=== PATIENT | male | born 1930 ===

== ENCOUNTER → 2016-09-29 | Outpatient (CLI) | payer OTHER | LOC: RAD 08:47 | DX: R06.02 Shortness of breath (principal); R06.00 Dyspnea, unspecified; R91.1 Solitary pulmonary nodule ==

== ENCOUNTER → 2016-12-08 | Outpatient (CLI) | payer OTHER | LOC: RAD 12:33 | DX: R06.00 Dyspnea, unspecified (principal) ==

== ENCOUNTER → 2017-11-29 | Outpatient (CLI) | payer OTHER | LOC: RAD 12:42 | DX: M54.16 Radiculopathy, lumbar region (principal); M48.061 Spinal stenosis, lumbar region without neurogenic claudication ==

== ENCOUNTER → 2017-12-07 | Outpatient (CLI) | payer OTHER | LOC: MRI 11:25 | DX: M51.16 Intervertebral disc disorders with radiculopathy, lumbar region (principal); M48.062 Spinal stenosis, lumbar region with neurogenic claudication; M12.88 Other specific arthropathies, not elsewhere classified, other specified site; M25.78 Osteophyte, vertebrae; M79.652 Pain in left thigh ==

== ENCOUNTER → 2017-12-19 | Outpatient (CLI) | payer OTHER ==
[~2017-12-19] VITALS: Ht 170.2 cm; Wt 72.6 kg
[~2017-12-19] MED LIST: ALLOPURINOL 10100 M1 PO; APAP650 PO; AVAPRO 150 MG150 M1 PO; GABAPENTIN 100100 MG PO; KAPSPARGO SPRIN25 MG PO; NEURONTIN 300300 M1 PO; PRAVACHOL40 MG PO; UNICOMPLEX M TA1 TA1 PO; VITAMIN D1000 UNI1 PO
--- NOTE | ~2017-12-19 | HPC ---
[facility] [address] [place] [address] PAIN MANAGEMENT CONSULTATION Name: BOONE DENNEY Room #: REG [facility]#: [id number] Admission: 12/19/17 Attend Phys: Jas Diaz DO Discharge: Date of : 29 Report #: [id number] THIS REPORT FOR: //name// CC: aJs Mcnamara MD DATE OF SERVICE: 12/19/2017 REFERRING PHYSICIAN: Paul Mcnamara MD CHIEF COMPLAINT: Low back pain, left lower extremity pain with paresthesias. HISTORY OF PRESENT ILLNESS: As you know, the patient is an 87-year-old male who reports acute onset of low back pain, left lower extremity pain that began in 11/11/2017. The patient denies specific injury or trauma that may have led to symptom development. He indicates pain has been present for greater than a month. He describes the pain as constant, aching and tender in sensation, exacerbated with bending, improves with medications and seated position. He is placing pain score no greater than 6/10 today. The patient was started on gabapentin for which he takes gabapentin 100 mg in the morning, 100 mg at noon and 100 mg at night along with an extra strength Tylenol with near 100% improvement in overall pain. The patient reports that is only pain at this time is noted early in the morning upon arising from bed, states that his medications do not provide 12-hour coverage during sleep. He has been referred to our service to discuss treatment options for suspected lumbar radiculopathy. The patient describes pain today is constant, aching and tender, places current pain score at around 6/10, daily average at less than 2/10, worst pain has been is 8/10. 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 Otherwise, he is "pain free throughout the day." He has been referred to our clinic. We discuss options for treatment for suspected lumbar radiculopathy. PAST MEDICAL HISTORY: 1. Hypertension. 2. Prostate cancer, status post laparoscopic prostatectomy. 3. Osteoarthritis. PAST SURGICAL HISTORY: 1. Laparoscopic prostatectomy. 2. Total right knee arthroplasty. SOCIAL HISTORY: The patient denies tobacco, alcohol, IV or illicit drug use. 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 He is not working, not receiving workmen's compensation nor is [place] trying [place] [address] PAIN MANAGEMENT CONSULTATION Name: BOONE DENNEYVANESSARama Room #: REG [facility] [id number] Admission: 12/19/17 Attend Phys: Jas Diaz DO Discharge: Date of : 29 Report #: [id number] He is unaccompanied today. REVIEW OF SYSTEMS: Positive for wearing corrective eyewear, frequent urination, nocturia, incontinence, dribbling of urine, low back pain, left lower extremity pain with paresthesias. All other review of systems negative per 12-point review of systems other than those listed in history of present illness. Pain impact score 5/70 indicating minimal fact on daily activity. IMAGING: MRI lumbar spine obtained on 12/07/2017 shows severe acquired spinal stenosis at L4-L5 secondary to central disk bulge, hypertrophic facet arthropathy, hypertrophy of the ligamentum flavum. Central canal is severely narrowed with minimal CSF signal, associated moderate left neural foraminal stenosis noted at the level. PQRS: The patient has known osteoarthritis of the bilateral knees, bilateral hips and low back. No rheumatoid arthritis. He places pain intensity today 6/10. He is not a fall risk, has not had a fall in the last 3 months. He is not on blood thinners, but he is treated for hypertension. He is not on opioids, has a low opioid addiction potential. His pain impact score 5/70. PHYSICAL EXAMINATION: VITAL SIGNS: Blood pressure 154/74, pulse 78, respiratory rate 16 and unlabored. The patient is 100% on room air. Height 5 feet 7 inches tall, weight 160 pounds, BMI calculated 25.1. GENERAL: Well-developed, well-nourished, well-hydrated 87-year-old male appearing his stated age. He is placing current pain score at 1/10. HEENT: Normocephalic, atraumatic. Pupils equal, round, reactive to light. Extraocular muscles are intact. Sclerae nonicteric without injection. NEUROLOGIC: Cranial nerves 2-12 grossly intact. Speech is fluent. The patient deemed a good historian. LUNGS: Clear, no wheeze, rhonchi or rales. CARDIOVASCULAR: Regular. No appreciable gallop, no rub. ABDOMEN: Soft, nontender, nondistended, normoactive bowel sounds. EXTREMITIES: Show no clubbing, no cyanosis, no edema. MUSCULOSKELETAL: Lower extremity strength appears equal and symmetrical 5/5, muscle bulk and tone is equal and symmetrical in comparing left lower extremity to right. Seated straight leg raising negative. Supine straight leg raising positive on the left. Karlene's test negative. Modified Gaenslen's positive for axial low back pain. Ankle clonus negative. Babinski is negative. Gait mildly antalgic favoring left lower extremity over right. Lumbar provocation testing is met with mild axial back pain, no radiation of symptoms noted. ASSESSMENT: 1. Lumbar radiculopathy. 2. Severe spinal stenosis of lumbar spine. 3. Displacement of lumbar intervertebral disk with radiculopathy. [facility] [address] [place] [address] PAIN MANAGEMENT CONSULTATION Name: BOONE DENNEYVANESSARama Room #: REG JAM Ebony#: [id number] Admission: 12/19/17 Attend Phys: Jas Diaz DO Discharge: Date of : 29 Report #: [id number] 4. Lumbosacral spondylosis with radiculopathy. 5. Neural foraminal stenosis of lumbar spine. 6. Lumbar degeneration. 7. Chronic intractable pain. PLAN: 1. Based on today's physical exam and the history patient has provided, the description the patient uses in regards to pain, exacerbating factors of his symptoms and the findings of his MRI and the likely source of the patient's pain is lumbar radiculopathy secondary to spinal stenosis. The patient's spinal stenosis is located at the L4-L5 level, which shows severe spinal stenosis secondary to disk bulging, hypertrophic facet arthropathy and hypertrophy of the ligamentum flavum, which are typical findings in an 87-year-old male. The patient and I did discuss the treatment options available for symptom palliation. The following was discussed with the patient today. We discussed physical therapy, stretching exercises, core strengthening as a treatment option. We discussed medication management, escalating his dose of neuropathic pain medication in the evening hours to address his morning pain issues. Otherwise, his pain is near nonexistent during the daytime hours with current dosing. We discussed epidural injection under fluoroscopic guidance to address back pain. We also discussed surgical options that may be ultimately necessary to decompress the L4-L5 level. After reviewing the risks and benefits of all the proposed treatment options, the patient chose to make adjustments in medication initially. If this is ineffective, move forward with an epidural injection. 2. The patient was advised to increase his gabapentin. Currently, he is at 100 mg in the morning with an extra strength Tylenol and 100 mg at noon with an extra strength Tylenol. Would recommend increasing his dose of gabapentin in the evening hours, but maintain the extra strength Tylenol dosing at night. This should provide the patient with better analgesic benefit to potentially allow him to make it through the evening hours and awake with less discomfort. We also discussed if increasing dose at night prior to bedtime is ineffective, he could then take a dose at bedtime and then take a second dose in the mid evening hours when he awakes to micturate secondary to his bladder incontinence. This would be another way to address his pain in the morning hours by increasing his gabapentin dose or increasing his dose regimen. The patient will choose the most effective way to treat his a.m. pain either will be in efficient way of handling it. 3. The patient was provided prescription of gabapentin 300 mg dose, this will be utilized at night either 300 mg at bedtime and again 300 mg in the mid evening hours to address his morning pain or the possibility of taking 600 mg at night. The patient was given 2 ways to dose. He will choose the one that works most effective. He was given gabapentin 300 mg #60 tablets with 2 refills, assuming efficacy. The patient will watch for any side effects, contact the clinic with any questions or concerns. [address] [address] PAIN MANAGEMENT CONSULTATION Name: BOONE DENNEY Room #: REG JAM Beck#: [id number] Admission: 12/19/17 Attend Phys: Jas Diaz DO Discharge: Date of : 29 Report #: [id number] 4. We will see the patient back in followup visit in approximately 2 weeks. At that time, the patient will have trialled dosing changes in the evening hours determine if this will control his evening pain and morning pain issues. We will discuss that at that time whether or not interventional treatments will be necessary. 5. We wish to thank Dr. Mcnamara for the opportunity to see this patient in consultation. We will keep you apprised of his response to treatment as we address lumbar radicular symptoms secondary to spinal stenosis. Again, we wish to thank Dr. Mcnamara for the opportunity to the patient in consultation. By: [id number] Jas Diaz DO /nt
[2017-12-19 13:14] VITALS: BP 154/74
== END ==
LOC: PAIN 06:18
DX: M47.27 Other spondylosis with radiculopathy, lumbosacral region (principal); M51.16 Intervertebral disc disorders with radiculopathy, lumbar region; M48.062 Spinal stenosis, lumbar region with neurogenic claudication; G89.4 Chronic pain syndrome; Z79.899 Other long term (current) drug therapy

== ENCOUNTER → 2018-01-09 | Outpatient (CLI) | payer OTHER ==
[~2018-01-09] VITALS: Ht 170.2 cm; Wt 72.6 kg
--- NOTE | ~2018-01-09 | HPC ---
[facility] [address] [place] [address] PAIN MANAGEMENT CONSULTATION Name: BOONE DENNEY Room #: REG [facility] Ebony#: [id number] Admission: 01/09/18 Attend Phys: Jas Diaz DO Discharge: Date of : 29 Report #: [id number] THIS REPORT FOR: //name// CC: Jas Mcnamara DATE OF SERVICE: 01/09/2018 CHIEF COMPLAINT: Low back pain, left lower extremity pain and paresthesias. HISTORY OF PRESENT ILLNESS: As you know, the patient is a very pleasant 87-year-old male who reports acute onset of low back pain, left lower extremity pain that began in 11/11/2017. Denied any specific injury or trauma that may have led to symptom development. He was seen in consultation per the request of Dr. Mcnamara on 12/19/2017. At that visit, diagnosed with lumbar radiculopathy secondary to severe spinal stenosis of the lumbar spine. His spinal stenosis is multifactorial due to facet changes in the lumbar region as well as displacement of a lumbar intervertebral disk. He also has fairly significant neural foraminal stenosis noted on this imaging study. He returns today in followup visit having been initiated on gabapentin therapy with good efficacy. The patient states he was only experiencing pain in the morning hours, lasting for about an hour; once he takes his gabapentin his pain resolves throughout the day. He returns today in followup visit stating pain score of no greater than 1/10 daily except for that morning hours where he has a pain of about 4-6/10. He returns for refill of medications. He is very pleased with response to the medication management. He indicates the pain when present is aching, tender, numbness and tingling; exacerbated with bending, walking and arising from bed; improves with medications, seated position and warm compress. ALLERGIES: No known drug allergies. CURRENT MEDICATIONS: Gabapentin, multivitamin, cholecalciferol, acetaminophen, metoprolol, allopurinol, irbesartan, pravastatin. SOCIAL HISTORY: The patient denies tobacco, alcohol, IV or illicit drug use. 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 He is unaccompanied today. IMAGING: No new imaging available. PQRS: The patient has known osteoarthritis, bilateral knees, bilateral hips and low back. No rheumatoid arthritis. He places current pain score at around 0-1/10. He is not a fall risk, has not had a fall in the last 3 months. He is not on blood thinners. He is treated for hypertension. He is not on opioids and has a low addiction potential. His pain impact score today is 5/70, indicating mild interference of daily activities secondary to pain. [facility] [address] [place] [address] PAIN MANAGEMENT CONSULTATION Name: BOONE DENNEY RAJAT Room #: REG CL Ebony#: [id number] Admission: 01/09/18 Attend Phys: Jas Diaz DO Discharge: Date of : 29 Report #: [id number] PHYSICAL EXAMINATION: VITAL SIGNS: Blood pressure 169/68, pulse 76, respiratory rate 16 and unlabored. The patient 93% on room air. Height 5 feet 7 inches tall, weight is 160 pounds, BMI calculated 25.1. GENERAL: Well-developed, well-nourished, well-hydrated 87-year-old male appearing his stated age, placing current pain score 1/10 throughout the day, 4-6/10 in the morning hours, lasting for just 1 hour. HEENT: Normocephalic, atraumatic. Pupils equal, round, reactive to light. Extraocular muscles are intact. EXTREMITIES: Show no clubbing, no cyanosis, no edema. MUSCULOSKELETAL: Lower extremity strength remains 5/5, intact to light touch from L1 through S2 dermatomes. Seated straight leg raising negative. Supine straight leg raising positive on the left. Karlene's test negative. Modified Gaenslen's remains positive for axial low back pain, no radiation of symptoms. ASSESSMENT: 1. Lumbar radiculopathy. 2. Severe spinal stenosis of lumbar spine. 3. Displacement of lumbar intervertebral disk with radiculopathy. 4. Lumbosacral spondylosis with radiculopathy. 5. Neural foraminal stenosis of the lumbar spine. 6. Facet arthropathy of the lumbar spine. 7. Degeneration of the lumbar spine. 8. Chronic intractable pain. PLAN: 1. The patient returns today in followup visit having noted good efficacy with the gabapentin therapy. In fact, once he takes his gabapentin in the morning hours, his pain is negligible throughout the day. He is able to return to all activities of daily living. The patient and I did discuss this one hour of time upon arising in the morning that is causing discomfort. We have offered the patient three different ways to treat this issue. The following was discussed with the patient. 2. The patient can remain on the current dosing and timing, he is receiving good efficacy. He reports the 4-6/10 pain only lasts for about an hour after awakening and taking his gabapentin. If this works for the patient and he is not having any difficulty, he can continue the current dosing. We discussed the possibility of taking his gabapentin earlier in the morning. He can do this upon arising to micturate. The patient can take the medication at about 5:30m his typical awakening time, then return to bed, waking up another hour or later, which would provide the medication coverage upon arising. He would then remain on his current night dosing at the current prescribed parameters. Certainly, he could increase his evening dose, which will provide better coverage throughout the evening hours and probably provide improvement for morning issues. He is going to consider his options. This increase would be monitored for any side [address] [address] PAIN MANAGEMENT CONSULTATION Name: MARTHA DENNEYCIRILO LAURENRama Room #: REG Spencer Beck#: [id number] Admission: 01/09/18 Attend Phys: Jas Diaz DO Discharge: Date of : 29 Report #: [id number] effects. After reviewing the different ways to take the medication to address his morning medication, the patient stated he will continue his current dosing at present, he may adjust his morning as recommended. He will contact us with efficacy. 3. The patient was provided a refill prescription of his gabapentin to take 300 mg 3 tabs in the morning and 3 tabs at night, #240 with 2 refills. 4. We will see the patient back in followup visit in 3 months for ongoing medication therapy. If this is working well. He can follow up with Dr. Mcnamara. If necessary, the patient can return to receive refills of medication or to discuss interventional treatments. By: [id number] Jas Diaz DO /nt
[2018-01-09 12:44] VITALS: BP 169/68
== END ==
LOC: PAIN 06:37
DX: M47.27 Other spondylosis with radiculopathy, lumbosacral region (principal); M48.062 Spinal stenosis, lumbar region with neurogenic claudication; M51.16 Intervertebral disc disorders with radiculopathy, lumbar region; G89.4 Chronic pain syndrome; M12.88 Other specific arthropathies, not elsewhere classified, other specified site; Z79.899 Other long term (current) drug therapy

== ENCOUNTER → 2018-03-27 | Outpatient (CLI) | payer OTHER ==
[~2018-03-27] VITALS: Ht 170.2 cm; Wt 77.1 kg
[~2018-03-27] MED LIST changes: +NEURONTIN600 MG PO; +SKELAXIN 800 M800 MG PO
[2018-03-27 11:12] VITALS: BP 158/74
--- NOTE | 2018-03-27 11:14 | NUR ---
Pain Clinic Assessment: 1. History of Osteoarthritis: History of Rheumatoid Arthritis: 2. Height: 5 ft. 7 in. 170.2 cm. Weight: 170.0 lb. oz. 77.112 kg. Patient's BMI: 26.6 3. Vital Signs: BP: 158/74 Pulse: 90 Resp: 16 Temp: 02 Sat: 98 ECG Mon: 4. Pain Intensity: 0 5. Fall Risk: Dizziness: N Needs help standing or walking: N Fallen in the last 3 months: N Fall risk comments: 6. Patient on Blood Thinner: None 7. History of Hypertension: Y 8. Opioid Therapy greater than 6 weeks: N Opiate Contract Signed: 9. Risk Assessment Tool Provided: LOW 10. Functional Assessment Tool: 11. Recreational Drug Use: Never Drug Type: Tobacco Use: Never Smoker Tobacco Type: Amount or Packs/day: How Many Years: Alcohol Use: No Frequency: Quant:
== END ==
LOC: PAIN 06:44
DX: M79.652 Pain in left thigh (principal); M25.572 Pain in left ankle and joints of left foot; M54.5 Low back pain; Z79.899 Other long term (current) drug therapy

== ENCOUNTER → 2018-08-21 | Outpatient (CLI) | payer OTHER ==
[~2018-08-21] VITALS: Ht 170.2 cm; Wt 76.4 kg
[2018-08-21 13:55] VITALS: BP 146/90
--- NOTE | 2018-08-21 14:13 | NUR ---
Pain Clinic Assessment: 1. History of Osteoarthritis: Not Applicable History of Rheumatoid Arthritis: Not Applicable 2. Height: 5 ft. 7 in. 170.2 cm. Weight: 168.4 lb. oz. 76.386 kg. Patient's BMI: 26.4 3. Vital Signs: BP: 146/90 Pulse: 74 Resp: 16 Temp: 02 Sat: 98 ECG Mon: 4. Pain Intensity: 0 5. Fall Risk: Dizziness: N Needs help standing or walking: N Fallen in the last 3 months: N Fall risk comments: 6. Patient on Blood Thinner: None 7. History of Hypertension: Y 8. Opioid Therapy greater than 6 weeks: N Opiate Contract Signed: 9. Risk Assessment Tool Provided: LOW 10. Functional Assessment Tool: 11. Recreational Drug Use: Never Drug Type: Tobacco Use: Never Smoker Tobacco Type: Amount or Packs/day: How Many Years: Alcohol Use: No Frequency: Quant:
--- NOTE | 2018-09-04 08:11 | HPC ---
[facility] [address] [place] [address] PAIN MANAGEMENT CONSULTATION Name: BOONE DENNEY Room #: REG Spencer JordyKaylaDixon#: [id number] Admission: 08/21/18 ������������������ Attend Phys: Jas Diaz DO Discharge: ������������������ Date of : 29 Report #: [id number] THIS REPORT FOR: //name// CC: Jas Mcnamara MD DATE OF SERVICE: 08/21/2018 REFERRING PHYSICIAN: Paul Mcnamara M.D. CHIEF COMPLAINT: Low back pain, left lower extremity pain with paresthesias. HISTORY OF PRESENT ILLNESS: As you know, the patient is a very pleasant 87-year-old male returning in followup visit with pain rated at 0/10. He is requesting assistance to come off his gabapentin therapy, which has provided quite a significant improvement in overall pain. He feels he has improved physiologically and wishes to come off the medication if at all possible. He has been slowly reducing his medication, but was advised by his PCP to return to confirm weaning parameters. Overall, the patient states he is doing really well. His pain impact score is 5/70, indicating mild near complete resolution of pain. ALLERGIES: No known drug allergies. CURRENT MEDICATIONS: Gabapentin, multivitamin, cholecalciferol, acetaminophen, metoprolol, allopurinol, irbesartan and pravastatin. SOCIAL HISTORY: The patient denies tobacco, alcohol, IV or illicit drug use. 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 IMAGING: No new imaging available. PQRS REVIEW: The patient has known arthritic change of the bilateral knees, bilateral hips and lumbar spine. No rheumatoid arthritis, placing pain score 0/10. He is not a fall risk, has not had fallen in the last 3 months. He is not on blood thinners. He is treated for hypertension. He is not on any chronic opioids. He does have a low opioid addiction potential. Pain impact score 5/70, indicating mild interference of daily activities secondary to pain. PHYSICAL EXAMINATION: VITAL SIGNS: Blood pressure 146/90, pulse is 74 and respiratory rate 16 and unlabored. The patient is 98% on room air. Height 5 feet 7 inches tall, weight 168.4 pounds, BMI calculated 26.4. GENERAL: Well-developed, well-nourished and well-hydrated 87-year-old male, appearing stated age, placing current pain score at 0/10. [address] [address] PAIN MANAGEMENT CONSULTATION Name: BOONE DENNEY Room #: REG CLI [facility]#: [id number] Admission: 08/21/18 ������������������ Attend Phys: Jas Diaz DO Discharge: ������������������ Date of : 29 Report #: [id number] HEENT: He is normocephalic, atraumatic. Pupils equal, round and reactive to light. Extraocular muscles are intact. EXTREMITIES: Show no clubbing, no cyanosis and no edema. MUSCULOSKELETAL: Lower extremity strength symmetrical, 5/5; intact to light touch from L1 through S2 dermatomes. Seated straight leg raising negative. Supine straight leg raising negative. Karlene's test is negative. ASSESSMENT: 1. Symptomatic lumbar radiculopathy. 2. Severe spinal stenosis of the lumbar spine. 3. Displacement of the lumbar intervertebral disk with radiculopathy. 4. Lumbosacral spondylosis with radiculopathy. 5. Neural foraminal stenosis of the lumbar spine. 6. Facet arthropathy of the lumbar spine. 7. Degeneration of the lumbar spine. PLAN: 1. The patient returns today in followup visit requesting to begin weaning off his gabapentin therapy. He has successfully weaned down to 600 mg 3 times a day. We will then continue the titration of his medication, reducing by 300 mg every 3 days until which time he is off the medication or he has recurrence of pain. We advised the patient if he has no recurrence of pain, continue off the medication until he has completed the titration, which will take him approximately 18 days. If he has any concerns or side effects, contact our clinic. If the patient is noting a recurrence of pain during the titration of the medication, he is to return to the dose prior to the pain recurrence and continue with that therapy. He is to contact our clinic if he has to continue on the treatment, so that we can provide further refills. 2. We are pleased to see the patient has done very well with our medication treatment. I am also very pleased to help the patient wean off the gabapentin if he can do so. If he has any questions or concerns, he will contact our clinic. We will see him back as necessary. 3. We will be returning the patient's care to your capable hands, Dr. Mcnamara. Please keep us apprised if further adjustments or intervention treatments are necessary. ��������������������������������������������� <ELECTRONICALLY SIGNED> ���������������������������������������� By: Jas Diaz DO ��������������������������������������������� 09/04/18 0811 [id number] Jas Diaz DO /nt
== END ==
LOC: PAIN 08-07 08:41
DX: M47.27 Other spondylosis with radiculopathy, lumbosacral region (principal); M51.16 Intervertebral disc disorders with radiculopathy, lumbar region; M48.062 Spinal stenosis, lumbar region with neurogenic claudication; M12.88 Other specific arthropathies, not elsewhere classified, other specified site; Z79.899 Other long term (current) drug therapy